=== PATIENT | female | born 1990 | race Two or more races ===

== ENCOUNTER 2021-01-12 13:12 | Emergency (ER) | payer MEDICAID ==
[~2021-01-12] VITALS: Ht 154.9 cm; Wt 63.6 kg
[2021-01-12] MEDS ORDERED: FLUT16SP2 BOTHNARES (13:38)
[2021-01-12] MEDS ORDERED: AMOX-422 PO (13:38)
[2021-01-12 13:46] VITALS: BP 115/88
== END 2021-01-12 14:03 | disposition home or self-care (01) ==
LOC: ER 13:13
DX: J32.1 Chronic frontal sinusitis (principal); Z20.822 Contact with and (suspected) exposure to COVID-19; E11.9 Type 2 diabetes mellitus without complications; Z79.2 Long term (current) use of antibiotics; Z79.899 Other long term (current) drug therapy
CPT/HCPCS: 36415; 99283; U0003; U0005